=== PATIENT | male | born 1935 | race Caucasian/White ===

== ENCOUNTER → 2017-10-12 | Outpatient (CLI) | payer OTHER, MEDICARE ==
--- NOTE | 2017-10-13 05:51 | CPEEG ---
[f rep st] ELECTROENCEPHALOGRAM ELECTROENCEPHALOGRAM DATE OF STUDY: 10/12/2017 DATE OF INTERPRETATION: 10/12/2017. INTERPRETATION: Normal EEG during wakefulness and sleep. There were no potentially epileptogenic abnormalities present during the recording. REPORT: This EEG contains 9 Hz alpha to the posterior head regions. There was no abnormal activation at rest, during photic stimulation or hyperventilation. The patient became drowsy and fell asleep during the study. There was no abnormal activation during drowsiness, sleep, or during times of arousal. Focal periodic myogenic artifact over the right frontal head regions during the recording intermittency. /[id number]/MODL MTDD
== END ==
LOC: FCPNEURO 12:39
PROVIDERS: ATTEND Internal Medicine Interventional Cardiology
DX: G40.A09 Absence epileptic syndrome, not intractable, without status epilepticus (principal)